=== PATIENT | male | born 1950 | race Caucasian/White ===

== ENCOUNTER 2021-01-08 06:11 | Observation (INO) | payer MEDICARE ==
[~2021-01-08] VITALS: Ht 182.9 cm; Wt 129.7 kg
[~2021-01-08 06:11] MED LIST: AMLODIPINE BESY10 MG PO; GLIPIZIDE5 MG PO; LIPITOR10 MG PO; LISINOPRIL10 MG PO; METOPROLOL SUCC50 MG PO
[2021-01-08] MEDS ORDERED: SODIUM CHLORIDE 0.9% 500ML 500 ML ONE (06:51)
[2021-01-08] MEDS ORDERED: TRANEXAMIC ACID 1,000 MG/10 ML ML ONE (06:51)
[2021-01-08] MEDS ORDERED: Vancomycin IV 1,000 MG ONE (06:51)
[2021-01-08] MEDS ORDERED: CELECOXIB 200 MG CAP ONE (07:08)
[2021-01-08] MEDS ORDERED: GABAPENTIN 300 MG CAP ONE (07:08)
[2021-01-08] MEDS ORDERED: SODIUM CHLORIDE 0.9% 50ML 100 ML ONE (07:08)
[2021-01-08] MEDS ORDERED: DEXAMETHASONE SOD PHOS 10 MG/1 ML VIAL ONE (07:08)
[2021-01-08] MEDS ORDERED: ROPIVACAINE 246.25 MG, EPINEPHRINE HCL 1:1000 1ML 0.5 MG, CLONIDINE HCL 0.08 MG, KETORO... INJ ONE ×5 (08:00)
[2021-01-08] MEDS ORDERED: ONDANSETRON HCL INJ 2MG/ML 2ML 2 MG/ML VIAL IV PRN (09:15)
[2021-01-08] MEDS ORDERED: DIPHENHYDRAMINE HCL INJ 50 MG/ML VIAL IV PRN (09:15)
[2021-01-08] MEDS ORDERED: DOCUSATE SODIUM 100 MG CAP PO PRN (09:15)
[2021-01-08] MEDS ORDERED: KETOROLAC TROMETHAMINE 30 MG/ML VIAL IV PRN (09:15)
[2021-01-08] MEDS ORDERED: HYDROCODONE/APAP 5MG-325MG TAB PO PRN (09:15)
[2021-01-08] MEDS ORDERED: ZOLPIDEM TARTRATE 5 MG TAB PO PRN (09:15)
[2021-01-08] MEDS ORDERED: ACETAMINOPHEN 650 MG SUPP PR PRN (09:15)
[2021-01-08] MEDS ORDERED: FENTANYL CITRATE/PF 100MCG/2 ML INJ ONE ×2 (10:10→13:26)
[2021-01-08 11:14] VITALS: BP 130/75
[2021-01-08 11:17] VITALS: BP 130/75
[2021-01-08] MEDS ORDERED: MORPHINE SULFATE INJ 10 MG/ML ONE (13:26)
[2021-01-08] MEDS ORDERED: MIDAZOLAM HCL 2 MG/2 ML VIAL ONE (13:26)
[2021-01-08] MEDS: SODIUM CHLORIDE 0.9% 1000ML 1,000 ML IV SCH ×2 (13:35→21:02)
[2021-01-08] MEDS ORDERED: POVIDONE IODINE 0.05% 0.05 % ML PO ONE (13:51)
[2021-01-08] MEDS ORDERED: ONDANSETRON HCL INJ 2MG/ML 2ML 2 MG/ML VIAL ONE (13:51)
[2021-01-08] MEDS ORDERED: SEVOFLURANE INHAL SOLN 250 ML PEN BTL ONE (13:51)
[2021-01-08] MEDS ORDERED: PROPOFOL IV EMULSION 10 MG/ML 20 ML VIAL ONE (13:51)
[2021-01-08] MEDS ORDERED: LIDOCAINE HCL 2% LOCAL INJ 5 ML SDV VIAL INJ ONE (13:51)
[2021-01-08] MEDS ORDERED: ROPIVACAINE 0.5% 5 MG/ML 30 ML SDV ONE (13:53)
[2021-01-08] MEDS ORDERED: LIDOCAINE 2%/ EPINEPHRINE 20ML MDV ONE (13:53)
[2021-01-08 15:47] VITALS: BP 126/83
[2021-01-08] MEDS: ASPIRIN 325 MG TAB PO SCH (16:28)
[2021-01-08] MEDS: Cefazolin 1 GM in SODIUM CHLORIDE 0.9% 50ML 50 ML IV SCH (16:28)
[2021-01-08] MEDS: CELECOXIB 200 MG CAP PO SCH (16:28)
[2021-01-08 19:41] VITALS: BP 146/78
[2021-01-08] MEDS: HYDROCODONE/APAP 7.5MG-325MG 1 EA TAB PO PRN (21:03)
[2021-01-09 00:30] VITALS: BP 148/73
[2021-01-09] MEDS: SODIUM CHLORIDE 0.9% 1000ML 1,000 ML IV SCH (03:37)
[2021-01-09 05:12] VITALS: BP 130/68
[2021-01-09 05:52] LABS: HEMATOCRIT 37.4 % (38.2-49.6); HEMOGLOBIN 12.1 g/dL (14.0-18.0)
[2021-01-09 07:59] VITALS: BP 124/74
[2021-01-09] MEDS: CELECOXIB 200 MG CAP PO SCH (08:40)
[2021-01-09] MEDS: ASPIRIN 325 MG TAB PO SCH (08:40)
[2021-01-09] MEDS: Cefazolin 1 GM in SODIUM CHLORIDE 0.9% 50ML 50 ML IV SCH ×3 (08:40)
[2021-01-09] MEDS: HYDROCODONE/APAP 7.5MG-325MG 1 EA TAB PO PRN (08:45)
[2021-01-09] MEDS ORDERED: GLIPIZIDE 5 MG TAB PO SCH (09:00)
[2021-01-09] MEDS ORDERED: AMLODIPINE BESYLATE 10 MG TAB PO SCH (09:00)
[2021-01-09] MEDS ORDERED: METOPROLOL SUCCINATE 50 MG TAB XL PO SCH (09:00)
[2021-01-09] MEDS ORDERED: ACETAMINOPHEN 1000 MG/100 ML IV PRN (09:15)
[2021-01-09 10:36] VITALS: BP 124/74
[2021-01-09 11:30] VITALS: BP 120/70
[2021-01-09] MEDS ORDERED: ATORVASTATIN 10 MG TAB PO SCH (21:00)
== END 2021-01-09 12:05 | disposition home health service (06) ==
LOC: OR 06:11 → PACU V 09:35 → MED/SURG 11:00
PROVIDERS: ADMIT Specialist; ATTEND Specialist
DX: M17.0 Bilateral primary osteoarthritis of knee (principal); Z20.822 Contact with and (suspected) exposure to COVID-19; Z01.818 Encounter for other preprocedural examination; E11.8 Type 2 diabetes mellitus with unspecified complications; Z79.899 Other long term (current) drug therapy; I10 Essential (primary) hypertension; E66.9 Obesity, unspecified; Z68.30 Body mass index [BMI] 30.0-30.9, adult
CPT/HCPCS: 27447; 36415 ×2; 71046; 73560; 82948; 85014; 85018; 86850; 86900; 97110; 97116 ×2; 97139; 97161; 97530; C1713 ×4; C1776 ×2; G0378 ×2; J0171; J0690 ×2; J1100; J1885; J2001 ×2; J2250; J2270; J2405; J2704; J2795; J3010; J3370; J7030 ×2; J7040; U0002; 86920

== ENCOUNTER 2021-09-03 05:33 | Observation (INO) | payer MEDICARE ==
[~2021-09-03] VITALS: Ht 182.9 cm; Wt 131.5 kg
[2021-09-03] MEDS ORDERED: TRANEXAMIC ACID 1,000 MG/10 ML ML ONE (06:15)
[2021-09-03] MEDS ORDERED: Vancomycin IV 1,000 MG ONE (06:15)
[2021-09-03] MEDS ORDERED: CELECOXIB 200 MG CAP ONE (06:15)
[2021-09-03] MEDS ORDERED: SODIUM CHLORIDE 0.9% 500ML 500 ML ONE (06:15)
[2021-09-03] MEDS ORDERED: GABAPENTIN 300 MG CAP ONE (06:15)
[2021-09-03] MEDS ORDERED: DEXAMETHASONE SOD PHOS 10 MG/1 ML VIAL ONE (06:15)
[2021-09-03] MEDS ORDERED: ROPIVACAINE 246.25 MG, EPINEPHRINE HCL 1:1000 1ML 0.5 MG, CLONIDINE HCL 0.08 MG, KETORO... INJ ONE ×5 (08:00)
[2021-09-03] MEDS ORDERED: ONDANSETRON HCL INJ 2MG/ML 2ML 2 MG/ML VIAL IV PRN (08:30)
[2021-09-03] MEDS ORDERED: ZOLPIDEM TARTRATE 5 MG TAB PO PRN (08:30)
[2021-09-03] MEDS ORDERED: DIPHENHYDRAMINE HCL INJ 50 MG/ML VIAL IV PRN (08:30)
[2021-09-03] MEDS ORDERED: DOCUSATE SODIUM 100 MG CAP PO PRN (08:30)
[2021-09-03] MEDS ORDERED: ACETAMINOPHEN 650 MG SUPP PR PRN (08:30)
[2021-09-03] MEDS ORDERED: HYDROCODONE/APAP 7.5MG-325MG 1 EA TAB PO PRN (08:30)
[2021-09-03] MEDS ORDERED: HYDROCODONE/APAP 5MG-325MG TAB PO PRN (08:30)
[2021-09-03] MEDS ORDERED: KETOROLAC TROMETHAMINE 30 MG/ML VIAL IV PRN (08:30)
[2021-09-03 10:01] VITALS: BP 115/63
[2021-09-03 10:04] VITALS: BP 115/63
[2021-09-03 10:09] VITALS: BP 115/63
[2021-09-03 10:26] VITALS: BP 115/63
[2021-09-03] MEDS: ASPIRIN 325 MG TAB PO SCH ×2 (10:50→10:51)
[2021-09-03] MEDS ORDERED: SODIUM CHLORIDE 0.9% 1000ML 1,000 ML IV SCH (11:00)
[2021-09-03] MEDS ORDERED: METOPROLOL SUCCINATE 50 MG TAB XL PO SCH (11:15)
[2021-09-03] MEDS ORDERED: LISINOPRIL 20 MG TAB PO SCH (11:30)
[2021-09-03] MEDS ORDERED: POVIDONE IODINE 0.05% 0.05 % ML PO ONE (12:40)
[2021-09-03] MEDS ORDERED: SEVOFLURANE INHAL SOLN 250 ML PEN BTL ONE (12:40)
[2021-09-03] MEDS ORDERED: PROPOFOL IV EMULSION 10 MG/ML 20 ML VIAL ONE (12:40)
[2021-09-03] MEDS ORDERED: EPHEDRINE SULFATE INJ 50 MG/ML VIAL ONE (12:40)
[2021-09-03] MEDS ORDERED: ONDANSETRON HCL INJ 2MG/ML 2ML 2 MG/ML VIAL ONE (12:40)
[2021-09-03] MEDS ORDERED: ACETAMINOPHEN 1000 MG/100 ML IV ONE (12:40)
[2021-09-03] MEDS ORDERED: LIDOCAINE HCL 2% LOCAL INJ 5 ML SDV VIAL INJ ONE (12:40)
[2021-09-03 12:49] VITALS: BP 130/63
[2021-09-03] MEDS ORDERED: ROPIVACAINE 0.5% 5 MG/ML 30 ML SDV ONE (13:03)
[2021-09-03] MEDS ORDERED: MIDAZOLAM HCL 2 MG/2 ML VIAL ONE (13:08)
[2021-09-03] MEDS ORDERED: FENTANYL CITRATE/PF 100MCG/2 ML INJ ONE (13:08)
[2021-09-03] MEDS ORDERED: Morphine 10mg syringe 10 MG/ML INJ ONE (13:08)
[2021-09-03] MEDS ORDERED: Cefazolin 1 GM in SODIUM CHLORIDE 0.9% 50ML 50 ML IV SCH (15:00)
[2021-09-03 15:54] VITALS: BP 140/81
[2021-09-03] MEDS ORDERED: CELECOXIB 200 MG CAP PO SCH (17:00)
[2021-09-04] MEDS ORDERED: ACETAMINOPHEN 1000 MG/100 ML IV PRN (08:30)
== END 2021-09-03 19:00 | disposition home or self-care (01) ==
LOC: OR 05:33 → PACU V 08:22 → MED/SURG 09:30
PROVIDERS: ADMIT Specialist; ATTEND Specialist
DX: M17.0 Bilateral primary osteoarthritis of knee (principal); Z20.822 Contact with and (suspected) exposure to COVID-19; E11.9 Type 2 diabetes mellitus without complications; I10 Essential (primary) hypertension; Z01.818 Encounter for other preprocedural examination; Z79.4 Long term (current) use of insulin; E78.5 Hyperlipidemia, unspecified
CPT/HCPCS: 27447; 36415; 73560; 82948; 86850; 86900; 86920; 94799; 97116; 97161; 97530; C1713; G0378; J0131; J0171; J0690; J1100; J1885; J2001; J2250; J2270; J2405; J2704; J2795; J3010; J3370; J7040; U0002

== ENCOUNTER 2021-09-20 09:53 | Inpatient (IN) | payer MEDICARE ==
[~2021-09-20] VITALS: Ht 188 cm; Wt 131.5 kg
[2021-09-20] MEDS ORDERED: SODIUM CHLORIDE 0.9% 500ML 0 ML ONE (10:07)
[2021-09-20] MEDS ORDERED: TRANEXAMIC ACID 1,000 MG/10 ML ML ONE (10:08)
[2021-09-20] MEDS ORDERED: Vancomycin IV 1,000 MG ONE (10:08)
[2021-09-20] MEDS ORDERED: SODIUM CHLORIDE 0.9% 50ML 50 ML ONE (10:29)
[2021-09-20] MEDS ORDERED: ONDANSETRON HCL INJ 2MG/ML 2ML 2 MG/ML VIAL ONE (12:03)
[2021-09-20] MEDS ORDERED: DEXAMETHASONE SOD PHOS INJ 4 MG/ML SDV ONE (12:03)
[2021-09-20] MEDS ORDERED: KETOROLAC TROMETHAMINE 30 MG/ML VIAL ONE (12:03)
[2021-09-20] MEDS ORDERED: PROPOFOL IV EMULSION 10 MG/ML 20 ML VIAL ONE (12:03)
[2021-09-20] MEDS ORDERED: LIDOCAINE HCL 2% LOCAL INJ 5 ML SDV VIAL INJ ONE (12:03)
[2021-09-20] MEDS ORDERED: SEVOFLURANE INHAL SOLN 250 ML PEN BTL ONE (12:03)
[2021-09-20] MEDS ORDERED: POVIDONE IODINE 0.05% 0.05 % ML PO ONE (12:03)
[2021-09-20] MEDS ORDERED: ONDANSETRON HCL INJ 2MG/ML 2ML 2 MG/ML VIAL IV PRN (13:15)
[2021-09-20] MEDS ORDERED: DOCUSATE SODIUM 100 MG CAP PO PRN (13:15)
[2021-09-20] MEDS ORDERED: ACETAMINOPHEN 650 MG SUPP PR PRN (13:15)
[2021-09-20] MEDS ORDERED: DIPHENHYDRAMINE HCL INJ 50 MG/ML VIAL IV PRN (13:15)
[2021-09-20] MEDS ORDERED: HYDROCODONE/APAP 5MG-325MG TAB PO PRN (13:15)
[2021-09-20] MEDS ORDERED: KETOROLAC TROMETHAMINE 30 MG/ML VIAL IV PRN (13:15)
[2021-09-20] MEDS ORDERED: FENTANYL CITRATE/PF 100MCG/2 ML INJ ONE ×2 (13:29→13:45)
[2021-09-20] MEDS ORDERED: HYDROMORPHONE 1MG/1ML INJ ONE ×2 (13:45→14:07)
[2021-09-20] MEDS ORDERED: MIDAZOLAM HCL 2 MG/2 ML VIAL ONE (13:45)
[2021-09-20] MEDS ORDERED: METOCLOPRAMIDE HCL 10 MG/2ML VIAL ONE (14:23)
[2021-09-20 15:26] VITALS: BP 139/77
[2021-09-20 15:30] VITALS: BP 139/77
[2021-09-20] MEDS: HYDROCODONE/APAP 7.5MG-325MG 1 EA TAB PO PRN ×2 (16:10→21:58)
[2021-09-20] MEDS: SODIUM CHLORIDE 0.9% 1000ML 1,000 ML IV SCH (16:43)
[2021-09-20] MEDS: Cefazolin 1 GM in SODIUM CHLORIDE 0.9% 50ML 50 ML IV SCH (17:54)
[2021-09-20 19:06] LABS: BASOPHILS % 0.4 % (0.0-1.0); HEMATOCRIT 44.6 % (38.2-49.6); HEMOGLOBIN 14.5 g/dL (14.0-18.0); LYMPHOCYTES # (AUTO) 0.3 (1.0-3.2); LYMPHOCYTES % 4.3 % (18.0-39.1); MEAN CORPUSCULAR HEMOGLOBIN 29.2 pg (28-32); MEAN CORPUSCULAR HGB CONC 32.5 g/dL (31-35); MEAN CORPUSCULAR VOLUME 89.7 fL (81-99); MONOCYTES # (AUTO) 0.1 (0.2-0.8); MONOCYTES % 0.9 % (4.4-11.3); NEUTROPHILS # (AUTO) 7.2 (2.1-6.9); NEUTROPHILS % 94.1 % (38.7-80.0); PLATELET COUNT 383 x10e3/uL (140-360); RED BLOOD COUNT 4.97 x10e6/uL (4.3-5.7); RED CELL DISTRIBUTION WIDTH 12.5 % (11.7-14.4)
[2021-09-20 19:27] LABS: ANION GAP 13.5 mmol/L (8-16); CALCIUM 8.9 mg/dL (8.4-10.2); CREATININE, SERUM 1.31 mg/dL (0.72-1.25); POTASSIUM 4.5 mmol/L (3.5-5.1)
[2021-09-20 19:48] VITALS: BP 151/75
[2021-09-20] MEDS: ATORVASTATIN 10 MG TAB PO SCH (21:02)
[2021-09-20] MEDS: GLIPIZIDE 5 MG TAB PO SCH (21:02)
[2021-09-20] MEDS: AMLODIPINE BESYLATE 10 MG TAB PO SCH (21:48)
[2021-09-20] MEDS ORDERED: ASPIRIN 325 MG TAB PO SCH (22:00)
[2021-09-20 22:16] VITALS: BP 151/75
[2021-09-20] MEDS: ASPIRIN 325 MG TAB PO SCH (23:02)
[2021-09-20] MEDS: CELECOXIB 100 MG CAP PO SCH (23:02)
[2021-09-20 23:55] VITALS: BP 131/75
[2021-09-21] MEDS: SODIUM CHLORIDE 0.9% 1000ML 1,000 ML IV SCH ×2 (02:00→12:00)
[2021-09-21] MEDS: Cefazolin 1 GM in SODIUM CHLORIDE 0.9% 50ML 50 ML IV SCH ×2 (03:16→11:00)
[2021-09-21 04:00] VITALS: BP 120/65
[2021-09-21] MEDS: HYDROCODONE/APAP 7.5MG-325MG 1 EA TAB PO PRN ×3 (05:05→21:16)
[2021-09-21 05:52] LABS: HEMATOCRIT 36.8 % (38.2-49.6); HEMOGLOBIN 12.1 g/dL (14.0-18.0)
[2021-09-21 08:28] VITALS: BP 119/67
[2021-09-21] MEDS ORDERED: AMLODIPINE BESYLATE 10 MG TAB PO SCH (09:00)
[2021-09-21] MEDS: CELECOXIB 100 MG CAP PO SCH ×2 (09:00→17:00)
[2021-09-21] MEDS: AMLODIPINE BESYLATE 10 MG TAB PO SCH ×2 (09:00→21:15)
[2021-09-21] MEDS: GLIPIZIDE 5 MG TAB PO SCH ×2 (09:00→17:00)
[2021-09-21] MEDS: METOPROLOL SUCCINATE 50 MG TAB XL PO SCH (09:00)
[2021-09-21] MEDS: ASPIRIN 325 MG TAB PO SCH ×2 (09:00→17:00)
[2021-09-21 09:37] VITALS: BP 119/67
[2021-09-21] MEDS: LISINOPRIL 10 MG TAB PO SCH (12:00)
[2021-09-21 12:59] VITALS: BP 125/66
[2021-09-21] MEDS ORDERED: ACETAMINOPHEN 1000 MG/100 ML IV PRN (13:15)
[2021-09-21] MEDS ORDERED: CEFTRIAXONE 2 GM in SODIUM CHLORIDE 0.9% 100 ML IV SCH (16:00)
[2021-09-21 17:22] VITALS: BP 114/65
[2021-09-21] MEDS: CEFTRIAXONE 2 GM in SODIUM CHLORIDE 0.9% 100 ML IV SCH (21:11)
[2021-09-21] MEDS: ATORVASTATIN 10 MG TAB PO SCH (21:15)
[2021-09-21] MEDS: ZOLPIDEM TARTRATE 5 MG TAB PO PRN (23:20)
[2021-09-22] VITALS (8 sets, daily range): BP systolic 121–151; BP diastolic 66–81
[2021-09-22] MEDS: SODIUM CHLORIDE 0.9% 1000ML 1,000 ML IV SCH ×3 (02:05→16:50)
[2021-09-22] MEDS: HYDROCODONE/APAP 7.5MG-325MG 1 EA TAB PO PRN ×4 (05:26→20:57)
[2021-09-22 05:56] LABS: HEMATOCRIT 34.3 % (38.2-49.6); HEMOGLOBIN 11.1 g/dL (14.0-18.0)
[2021-09-22] MEDS: LISINOPRIL 10 MG TAB PO SCH (09:00)
[2021-09-22] MEDS: ASPIRIN 325 MG TAB PO SCH ×2 (09:00→16:50)
[2021-09-22] MEDS: CELECOXIB 100 MG CAP PO SCH ×2 (09:00→16:50)
[2021-09-22] MEDS: METOPROLOL SUCCINATE 50 MG TAB XL PO SCH (09:00)
[2021-09-22] MEDS: GLIPIZIDE 5 MG TAB PO SCH ×2 (09:00→16:50)
[2021-09-22] MEDS: CEFTRIAXONE 2 GM in SODIUM CHLORIDE 0.9% 100 ML IV SCH (20:28)
[2021-09-22] MEDS: ATORVASTATIN 10 MG TAB PO SCH (20:28)
[2021-09-22] MEDS: AMLODIPINE BESYLATE 10 MG TAB PO SCH (20:28)
[2021-09-22] MEDS: ZOLPIDEM TARTRATE 5 MG TAB PO PRN (23:16)
[2021-09-23] VITALS (8 sets, daily range): BP systolic 134–156; BP diastolic 73–95
[2021-09-23] MEDS: SODIUM CHLORIDE 0.9% 1000ML 1,000 ML IV SCH (04:00)
[2021-09-23] MEDS ORDERED: SODIUM CHLORIDE FLUSH 10 ML SYR INJ PRN (05:15)
[2021-09-23] MEDS: METOPROLOL SUCCINATE 50 MG TAB XL PO SCH (09:00)
[2021-09-23] MEDS: CELECOXIB 100 MG CAP PO SCH ×2 (09:00→17:00)
[2021-09-23] MEDS: ASPIRIN 325 MG TAB PO SCH ×2 (09:00→17:00)
[2021-09-23] MEDS: GLIPIZIDE 5 MG TAB PO SCH ×2 (09:00→17:00)
[2021-09-23] MEDS: HYDROCODONE/APAP 7.5MG-325MG 1 EA TAB PO PRN ×2 (10:00→20:15)
[2021-09-23] MEDS: LISINOPRIL 10 MG TAB PO SCH (12:59)
[2021-09-23] MEDS: ATORVASTATIN 10 MG TAB PO SCH (20:15)
[2021-09-23] MEDS: CEFTRIAXONE 2 GM in SODIUM CHLORIDE 0.9% 100 ML IV SCH (20:15)
[2021-09-23] MEDS: AMLODIPINE BESYLATE 10 MG TAB PO SCH (20:19)
[2021-09-23] MEDS: ZOLPIDEM TARTRATE 5 MG TAB PO PRN (23:33)
[2021-09-24] VITALS: BP 119/86
[2021-09-24 04:00] VITALS: BP 155/89
[2021-09-24 07:47] VITALS: BP 145/82
[2021-09-24] MEDS: LISINOPRIL 10 MG TAB PO SCH (08:31)
[2021-09-24] MEDS: ASPIRIN 325 MG TAB PO SCH ×2 (08:31→16:35)
[2021-09-24] MEDS: CELECOXIB 100 MG CAP PO SCH ×2 (08:31→16:35)
[2021-09-24] MEDS: GLIPIZIDE 5 MG TAB PO SCH ×2 (08:31→16:35)
[2021-09-24] MEDS: METOPROLOL SUCCINATE 50 MG TAB XL PO SCH (08:32)
[2021-09-24] MEDS: HYDROCODONE/APAP 7.5MG-325MG 1 EA TAB PO PRN ×2 (09:45→15:42)
[2021-09-24 11:24] VITALS: BP 114/83
[2021-09-24 15:39] VITALS: BP 143/84
[2021-09-24] MEDS: CEFTRIAXONE 2 GM in SODIUM CHLORIDE 0.9% 100 ML IV SCH (17:09)
[2021-09-24] MEDS ORDERED: ONDANSETRON HCL 4 MG ORAL DISINTEGRATING TAB PO PRN (18:15)
== END 2021-09-24 18:23 | disposition home or self-care (01) | DRG 487 ==
LOC: OR 09:53 → PACU V 13:08 → MED/SURG 14:55
PROVIDERS: ADMIT Specialist; ATTEND Specialist
PROC: 0SUW09Z Supplement Left Knee Joint, Tibial Surface with Liner, Open Approach (ICD-10-PCS; 2021-09-20)
PROC: 02HV33Z Insertion of Infusion Device into Superior Vena Cava, Percutaneous Approach (ICD-10-PCS; 2021-09-20)
PROC: 0SPD09Z Removal of Liner from Left Knee Joint, Open Approach (ICD-10-PCS; principal; 2021-09-20 11:55)
DX: T84.54XA Infection and inflammatory reaction due to internal left knee prosthesis, initial encounter (principal); E11.22 Type 2 diabetes mellitus with diabetic chronic kidney disease; I12.9 Hypertensive chronic kidney disease with stage 1 through stage 4 chronic kidney disease, or unspecified chronic kidney disease; N18.30 Chronic kidney disease, stage 3 unspecified; E78.5 Hyperlipidemia, unspecified; Z20.822 Contact with and (suspected) exposure to COVID-19; E66.9 Obesity, unspecified; Z68.37 Body mass index [BMI] 37.0-37.9, adult
CPT/HCPCS: 36415; 36569; 71045; 80048; 82948; 85014; 85018; 85025; 87071; 87075; 87205; 94799; 97139; C1713; J0690; J0696; J1100; J1170; J1885; J2001; J2250; J2405; J2765; J3010; J3370; J7030; J7040; J7050; U0002

== ENCOUNTER 2021-09-24 19:51 | Emergency (ER) | payer MEDICARE ==
[~2021-09-24] VITALS: Ht 188 cm; Wt 131.5 kg
== END 2021-09-24 20:20 | disposition home or self-care (01) ==
LOC: ER 20:02
DX: L76.34 Postprocedural seroma of skin and subcutaneous tissue following other procedure (principal); I10 Essential (primary) hypertension; E11.9 Type 2 diabetes mellitus without complications; E78.5 Hyperlipidemia, unspecified; Z96.653 Presence of artificial knee joint, bilateral
CPT/HCPCS: 99282